=== PATIENT | female | born 1960 | race Two or more races ===

== ENCOUNTER 2023-01-26 06:09 | Day surgery (SDC) | payer OTHER ==
[~2023-01-26] VITALS: Ht 162.6 cm; Wt 49.9 kg
[~2023-01-26 06:09] MED LIST: CLARITIN10 M1 PO
== END 2023-01-26 16:10 | disposition home or self-care (01) ==
LOC: CIR.AMB 06:09
PROVIDERS: ATTEND Surgery
DX: K80.10 Calculus of gallbladder with chronic cholecystitis without obstruction (principal); Z20.822 Contact with and (suspected) exposure to COVID-19; Z88.6 Allergy status to analgesic agent